=== PATIENT | male | born 1955 | race Caucasian/White ===

== ENCOUNTER → 2016-10-27 | Outpatient (CLI) | payer BC ==
--- NOTE | 2016-10-27 10:02 | DX ---
Right Wrist, Four Views History: Status post open reduction, internal fixation distal radial fracture. Follow up. Comparison: September 24, 2016. Findings: Postsurgical changes are seen of open reduction, internal fixation of distal right radial f racture with a volar fixation plate and screws. No evidence for hardware fracture. Ulnar volar-sided fracture fragment of the distal radius with intraarticular extension is similar in position with no s ignificant bridging callus. No other significant interval change. Impression: Postoperative changes of open reduction, internal fixation distal right radial fracture a s above.
== END ==
LOC: BMCIMAGING 09:11
PROVIDERS: ATTEND Orthopaedic Surgery
DX: S52.571D Other intraarticular fracture of lower end of right radius, subsequent encounter for closed fracture with routine healing (principal)

== ENCOUNTER → 2016-12-07 | Outpatient (CLI) | payer BC | LOC: BMCIMAGING 08:44 | PROVIDERS: ATTEND Orthopaedic Surgery | DX: S52.571D Other intraarticular fracture of lower end of right radius, subsequent encounter for closed fracture with routine healing (principal) ==